=== PATIENT | female | born 1965 ===

== ENCOUNTER → 2017-04-20 | Outpatient (CLI) | payer OTHER ==
[~2017-04-20] VITALS: Ht 152.4 cm; Wt 77.1 kg
[~2017-04-20] MED LIST: ALLEGRA ALLERG180 MG PO; AMOX1TAB5 PO; FLOVENT 110MCG7.9 GM IH; GILTUSS TR TAB1 EACH PO; IOPHEN DM-100 MG/5 M PO; PROVENTIL3 ML/2.5 M IH; SINGULAIR 10MG10 MG PO; TUSSIONEX PENNKI5 ML PO; ZITHROMAX500 MG PO
== END | disposition home or self-care (01) ==
LOC: PPHC 09:12
DX: B34.9 Viral infection, unspecified (principal)